=== PATIENT | female | born 1950 | race Caucasian/White ===

== ENCOUNTER 2017-01-24 13:28 | Outpatient (CLI) | payer OTHER, MEDICARE ==
--- NOTE | 2017-01-24 16:56 | MRI ---
MRI CERVICAL SPINE WITHOUT IV CONTRAST: Date: 01/24/17 HISTORY: Compression fractures upper thoracic spine. Follow-up evaluation. Neck and back pain. Steroid inject ions are not helping. COMPARISON: 12/06/16. FINDINGS: As noted on the prior exam, there are mild anterior wedge-shaped compression fractures of the C7, T1 , and T2 vertebral bodies. The edema long the superior end plates of these vertebral bodies has impr trupti when compared to the prior exam with only minimal residual edema present along the superior end plates and predominantly involving the T2 vertebral body. Degree of height loss is unchanged. There is stable slight anterolisthesis of T1 on T2 and degree of listhesis is unchanged. There is also tr amilcar anterolisthesis of C6 on C7, which is a stable finding as well. C2-3 Level: There is no disc bulge or disc herniation. Central spinal canal and neural foramina are patent. C3-4 Level: There is a mild broad based disc osteophyte complex, which results in only sight flattening of the a nterior aspect of the thecal sac. There are facet degenerative changes, primarily on the left, which does result in mild to moderate narrowing of the left neural foramen, similar to prior study. The r ight neural foramen is patent. C4-5 Level: There is loss of intervertebral disc height. There is a broad based disc osteophyte complex with fac et hypertrophic changes. Mild right and moderate to severe left-sided neural foraminal narrowing, st able from prior exam. C5-6 Level: There is loss of intervertebral disc height. Broad based disc osteophyte complex is present. There i s mild effacement of the ventral subarachnoid space. The right neural foramen is patent. There is mi ld to moderate left-sided neural foraminal narrowing. C6-7 Level: There is mild broad based disc osteophyte complex. This narrows the ventral subarachnoid space. Neur al foramina do appear patent at this level. C7-T1 Level: There is no disc bulge or disc herniation. Central spinal canal and neural foramina are patent. T1-2 Level: There is anterolisthesis at this level with broad based disc osteophyte complex also present. This n arrows the ventral subarachnoid space and encroaches on the anterior aspect of the spinal cord. Neur al foramina are patent. There is minimal mucosal thickening of the sphenoid sinus. No other interval change. IMPRESSION: 1. Compression fractures of the C7, T1, and T2 vertebral bodies, and the degree of height loss is u nchanged. The edema within these vertebral bodies has also improved, but does persist. No new compre ssion fracture is seen on this exam. 2. Stable slight anterolisthesis of C6 on C7, and to a slightly greater degree of T1 on T2, which i s also a stable finding. 3. Stable multilevel degenerative changes in the cervical spine. POS: [facility]
--- NOTE | 2017-01-24 17:00 | MRI ---
MRI THORACIC SPINE WITHOUT CONTRAST: Date: 01/24/17 HISTORY: Follow-up compression fractures. COMPARISON: MRI thoracic spine dated 12/06/16. FINDINGS: There is a similar appearance of the compression fracture of the C7, T1, and T2 vertebral bodies, wi th evidence of healing. No further height loss. No retropulsion. Old T9 compression fracture is joesph lar. No evidence for spinal cord compromise. There is a traumatic posterior disc protrusion at T1-T2 effa cing the ventral CSF space. This is unchanged. No new acute superimposed fracture or malalignment. Contour of the aorta is unremarkable. Left parapelvic cysts are similar. IMPRESSION: 1. No interval progression of height loss or superimposed acute thoracic spine fracture, or lower c ervical spine fracture. 2. Mild effacement of the ventral CSF space at T1-T2, similar. POS: [facility]
== END 2017-01-24 13:29 | disposition home or self-care (01) ==
LOC: SCSMRI 13:28
PROVIDERS: ATTEND Anesthesiology Pain Medicine
DX: S22.010A Wedge compression fracture of first thoracic vertebra, initial encounter for closed fracture (principal)
CPT/HCPCS: 72141; 72146

== ENCOUNTER 2017-01-28 16:31 | Outpatient (CLI) | payer OTHER, MEDICARE ==
--- NOTE | 2017-01-29 10:17 | RAD ---
RADIOGRAPH CERVICAL SPINE 3 VIEWS: HISTORY: 66-year-old female with post-traumatic cervicalgia, (trauma on 11-30-16), and cervical spondylosis. COMPARISON: 12-06-16 plain radiographic study. TECHNIQUE: The current study consists of three lateral views in neutral, extension, and flexion. FINDINGS: Advanced degenerative facet disease throughout the entire cervical spine bilaterally. These are resp onsible for slight anterior translations of approximately 2 mm of C2 on C3, C3 on C4, C4 on C5, C5 o n C6, and C6 on C7, on the flexion view. All of these reduce completely on the extension view with t he exception of C6 on C7 which remains unchanged. On the neutral view, only the C5-6 translation red uces. The C7-T1 level is more difficult to evaluate because of obscuring by shoulders. There is mild to mo derate disc space narrowing at C5-6 and C6-7. The rest of the disc spaces are maintained. No prevert ebral soft tissue swelling. Diffuse osteopenia. Slight depression of the anterior superior corner of C7 corresponds to the minimally depressed fracture demonstrated on the MRI of 12-06-16. There is no s ignificant interval change compared to 12-06-16 plain radiographic study. The range of motion is fairl y good. IMPRESSION: 1. Cervical spondylosis, consisting of multilevel high grade facet osteoarthrosis bilaterally, throu ghout the entire cervical spine which results in minimal anterior translations at all levels from C2 -3 through C6-7 (C7-T1 level is poorly visualized), all of which reduce upon extension, except for C 6-7. 2. Small old fracture of the anterior superior corner of C7 vertebral body. 3. No interval change since 12-06-16. RAJESH POS: [facility]
== END 2017-01-28 16:32 | disposition home or self-care (01) ==
LOC: TBSIIMAG 16:31
PROVIDERS: ATTEND Neurological Surgery
DX: M47.812 Spondylosis without myelopathy or radiculopathy, cervical region (principal)
CPT/HCPCS: 72040

== ENCOUNTER 2017-03-18 08:00 | Outpatient (CLI) | payer OTHER, MEDICARE | END 2017-03-18 08:01 | disposition home or self-care (01) | LOC: BICMAMMO 08:00 | PROVIDERS: ATTEND Anesthesiology Pain Medicine | DX: Z13.820 Encounter for screening for osteoporosis (principal); M85.88 Other specified disorders of bone density and structure, other site; M85.852 Other specified disorders of bone density and structure, left thigh | CPT/HCPCS: 77080 ==

== ENCOUNTER 2017-05-09 14:14 | Outpatient (CLI) | payer OTHER, MEDICARE ==
--- NOTE | 2017-05-09 16:05 | CT ---
CT CERVICAL SPINE WITHOUT CONTRAST 05/09/17 HISTORY: M54.2, 50.120. COMPARISON: CT cervical spine 11/30/16. FINDINGS: There is interval remodeling of the C7, T1 and T2 compression fractures involving the anterior superi or vertebral body and the superior end plate. The C7 vertebral fracture shows no significant increase in height loss, although the T1 and T2 compression fractures has mild loss of height. The mastoids are clear. Extensive facet arthropathy changes throughout the spine. IMPRESSION: 1. No acute new fracture or malalignment of the cervical spine. 2. Mild interval increase in height loss of the T1 and T2 compression fractures. 3. Extensive degenerative disease temporomandibular joints bilaterally. POS: [facility]
== END 2017-05-09 14:15 | disposition home or self-care (01) ==
LOC: SCSCT 14:14
PROVIDERS: ATTEND Orthopaedic Surgery
DX: M50.120 Mid-cervical disc disorder, unspecified level (principal); M26.69 Other specified disorders of temporomandibular joint
CPT/HCPCS: 72125

== ENCOUNTER 2017-08-01 13:15 | Outpatient (CLI) | payer OTHER, MEDICARE | END 2017-08-01 13:16 | disposition home or self-care (01) | LOC: BICMAMMO 13:15 | PROVIDERS: ATTEND Obstetrics & Gynecology | DX: Z12.31 Encounter for screening mammogram for malignant neoplasm of breast (principal) | CPT/HCPCS: 77063; 77067 ==

== ENCOUNTER 2017-11-04 13:34 | Outpatient (CLI) | payer OTHER, MEDICARE ==
--- NOTE | 2017-11-04 15:45 | RAD ---
THREE VIEWS RIGHT SHOULDER: Date: 11-04-17 Comparison: None. History: Right sided shoulder pain. FINDINGS: There is moderate degenerative change of the right acromioclavicular joint with interspace narrowing, subchondral sclerosis and anterior osteophyte formation. There is no widening of the coracoclavicula r interspace. No acute fracture or evidence of dislocation. There is mild joint space narrowing invol ving the glenohumeral joint with inferior osteophyte formation of the humeral head. IMPRESSION: Degenerative joint disease. No acute osseous abnormality. POS: [facility]
== END 2017-11-04 13:35 | disposition home or self-care (01) ==
LOC: SCSRAD 13:34
PROVIDERS: ATTEND Internal Medicine
DX: M25.511 Pain in right shoulder (principal); M19.011 Primary osteoarthritis, right shoulder

== ENCOUNTER 2018-08-14 12:47 | Outpatient (CLI) | payer OTHER, MEDICARE ==
--- NOTE | 2018-08-14 13:49 | MMO ---
Bilateral MAMMO Bilat Screen DDI+ADENIKE. CLINICAL HISTORY: Patient is 68 years old and is seen for screening. The patient has no family history of breast cancer. The patient has no personal history of cancer. VIEWS: The views performed were: bilateral craniocaudal with tomosynthesis and bilateral mediolateral oblique with tomosynthesis. FILMS COMPARED: The present examination has been compared to prior imaging studies performed at 09/12/2014, and at [facility] on 08/01/2017. MAMMOGRAM FINDINGS: The breasts are heterogeneously dense, which could obscure a lesion on mammography. There are stable benign appearing calcifications seen in both breasts. There are also vascular calcifications. There are no suspicious masses, suspicious calcifications, or new areas of architectural distortion. IMPRESSION: THERE IS NO MAMMOGRAPHIC EVIDENCE OF MALIGNANCY. A ROUTINE FOLLOW-UP MAMMOGRAM IN 1 YEAR IS RECOMMENDED. THE RESULTS OF THIS EXAM WERE SENT TO THE PATIENT. ACR BI-RADS Category 2 - Benign finding MAMMOGRAPHY NOTE: 1. A negative mammogram report should not delay a biopsy if a dominant of clinically suspicious mass is present. 2. Approximately 10% to 15% of breast cancers are not detected by mammography. 3. Adenosis and dense breasts may obscure an underlying neoplasm.
--- NOTE | 2018-08-14 14:33 | BD ---
DEXA DENSITOMETRY: HISTORY: Postmenopausal osteoporosis screening. FINDINGS: LUMBAR SPINE BMD (g/cm2) T-SCORE L1 0.782 -1.9 L2 0.809 -2.0 L3 0.928 -1.4 L4 0.910 -1.4 TOTAL 0.862 -1.7 FEMORAL NECK DENSITY 0.585 -2.4 TOTAL 0.837 -0.9 IMPRESSION: The bone mineral density of the lumbar spine and femoral neck both indicate osteopenia. TEN YEAR FRACTURE RISK: Major osteoporotic fracture: 13% Hip fracture: 2.8% POS: [facility]
== END 2018-08-14 12:48 | disposition home or self-care (01) ==
LOC: BICMAMMO 12:47
PROVIDERS: ATTEND Internal Medicine
DX: Z12.31 Encounter for screening mammogram for malignant neoplasm of breast (principal); Z13.820 Encounter for screening for osteoporosis; M85.89 Other specified disorders of bone density and structure, multiple sites
CPT/HCPCS: 77063; 77067; 77080

== ENCOUNTER 2018-08-27 12:12 | Outpatient (CLI) | payer OTHER, MEDICARE ==
--- NOTE | 2018-08-27 13:32 | ULT ---
Exam: Bilateral renal ultrasound complete: HISTORY: Acute kidney insufficiency, acute kidney injury COMPARISON: None FINDINGS: Right kidney: 8.4 x 5.2 x 6.2 cm. Left kidney: 10.4 x 4.7 x 4.3 cm No overt hydronephrosis. There is some dilatation of the left renal extrarenal pelvis without calycea l dilatation. No evidence for abnormal perinephric process. No solid or cystic renal mass. Unremarkable appearing bladder. IMPRESSION: Unremarkable bilateral renal ultrasound. Mild dilatation of the left extrarenal pelvis without calyce al dilatation or significant hydronephrosis.
== END 2018-08-27 12:13 | disposition home or self-care (01) ==
LOC: BICULT 12:12
PROVIDERS: ATTEND Internal Medicine
DX: N17.9 Acute kidney failure, unspecified (principal); N28.89 Other specified disorders of kidney and ureter
CPT/HCPCS: 76770

== ENCOUNTER 2018-09-17 01:47 | Outpatient (CLI) | payer OTHER, MEDICARE ==
[2018-09-17 16:05] LABS: #Basophils 0.1 thou/uL (0.0-0.2); #Eosinphils 0.3 thou/uL (0.0-0.7); #Lymphocytes 2.3 thou/uL (1.20-3.40); #Monocytes 0.5 thou/uL (0.11-0.59); #Neutrophils 6.3 thou/uL (1.40-6.50); %Basophils 0.9 % (0.0-1.0); %Eosinophils 2.9 % (0.0-10.0); %Lymphocytes 24.6 % (21.0-51.0); %Monocytes 5.5 % (0.0-10.0); %Neutrophils 66.1 % (42.0-75.0); Hemoglobin 12.1 g/dL (12.0-16.0); Mean Corpuscular HGB CONC 32.9 g/dL (32.0-36.0); Mean Corpuscular Hemoglobin 32.5 pg (27.0-31.0); Mean Corpuscular Volume 98.8 fL (78.0-98.0); Mean Platelet Volume 8.5 fL (7.4-10.4); Platelet Count 335 thou/uL (130-400); RBC Distribution Width 11.3 % (11.5-14.5); Red Blood Cell (RBC) Count 3.72 mill/uL (4.20-5.40); White Blood Cell (WBC) Count 9.5 thou/uL (4.8-10.8)
[2018-09-17 16:12] LABS: INR-International Normal Ratio 0.9; Prothrombin Time 12.5 SEC (12.0-14.7)
[2018-09-17 16:26] LABS: Anion Gap 14 mmol/L (10-20); BUN (Urea Nitrogen) 19 mg/dL (9.8-20.1); Calc. Creatinine Clearance 0 mL/min (70-130); Calcium 10.3 mg/dL (7.8-10.44); Carbon Dioxide 28 mmol/L (23-31); Chloride 102 mmol/L (98-107); Estimated GFR-MDRD 48; Glucose 84 mg/dL (80-115); Potassium 4.1 mmol/L (3.5-5.1); Sodium 140 mmol/L (136-145)
--- NOTE | 2018-09-18 21:25 | EKG ---
Test Reason : Blood Pressure : / mmHG Vent. Rate : 070 BPM Atrial Rate : 070 BPM P-R Int : 178 ms QRS Dur : 084 ms QT Int : 412 ms P-R-T Axes : 073 044 070 degrees QTc Int : 444 ms Normal sinus rhythm Normal ECG When compared with ECG of 18-NOV-2012 06:30, No significant change was found Confirmed by Rajan ATKINS ([id number]) on 09/18/2018 9:24:55 PM Referred By: GRACIELA Confirmed By:Rajan ATKINS
== END 2018-09-17 01:48 | disposition home or self-care (01) ==
LOC: LABBT 01:47
PROVIDERS: ATTEND Orthopaedic Surgery
DX: Z01.818 Encounter for other preprocedural examination (principal); M17.11 Unilateral primary osteoarthritis, right knee
CPT/HCPCS: 80048; 85025; 85610; 87081; 87086; 93005; 93010

== ENCOUNTER 2018-09-17 13:00 | Inpatient (IN) | payer OTHER, MEDICARE ==
[2018-09-17 12:35] VITALS: BMI 22.8
--- NOTE | 2018-09-24 13:02 | HP ---
HISTORY OF PRESENT ILLNESS: The patient is a 68-year-old female with a long history of progressive pain in the right knee, which has been present for several years, but has become much worse over the past several months. She had previous knee arthroscopy in 2012, which gave her temporary relief, but the patient said she has had increasing pain with walking, working, and getting dressed. She has had persistent symptoms despite rest, restriction of activities, and anti-inflammatory medication. Pain is now interfering with day-to-day activities. PAST MEDICAL HISTORY: The patient has had a mild stroke a few years ago with transient right hemiparesis. She has a history of hyperlipidemia and hypertension. CURRENT MEDICATIONS: Include: 1. Low-dose aspirin. 2. Lisinopril. 3. Metoprolol. 4. Lipitor. ALLERGIES: SHE HAS NO KNOWN ALLERGIES. FAMILY HISTORY: Otherwise unremarkable. SOCIAL HISTORY: Otherwise unremarkable. REVIEW OF SYSTEMS: Otherwise unremarkable. She does have some arthritic pain in her left knee, but not as severe as her right. PHYSICAL EXAMINATION: GENERAL: Reveals a healthy female. HEENT: Unremarkable. NECK: Supple. CHEST: Clear. HEART: Regular rate and rhythm. ABDOMEN: Soft, nontender. PELVIC: Deferred. RECTAL: Deferred. GENITAL: Deferred. EXTREMITIES: Pertinent findings related to the right knee, there is puffiness. No effusion. There is mild varus deformity. There is tenderness and crepitus over the medial joint line. There are healed arthroscopy puncture wounds. Range of motion is 5 to 125 degrees. There is no instability. Distal pulses are 1+. There is a right antalgic gait. Neurovascular exam is intact. DIAGNOSTIC STUDIES: X-rays of the right knee revealed [id number] collapse medially. There are similar changes on the left knee without as severe. IMPRESSION: 1. 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 2. History of hypertension. 3. History of mild cerebrovascular accident. PLAN: Right total knee replacement. The nature of the surgery, length of recovery, and potential complications such as infection, loss of motion, incomplete relief, thromboembolic phenomena, neurovascular injury, possible transfusion, and need for revision have been discussed in detail. Job ID: [id number]
[2018-09-28] MEDS ORDERED: Tranexamic Acid 1,000 MG/10 ML VIAL ONE ×2 (06:14→08:57)
[2018-09-28] MEDS ORDERED: Sodium Chloride 0.9% 100 ML ONE (06:14)
[2018-09-28] MEDS ORDERED: Fentanyl 100 MCG/2 ML VIAL ONE ×3 (06:19→09:12)
[2018-09-28] MEDS ORDERED: Midazolam HCl 2 mg/2 ml Vial ONE (06:19)
[2018-09-28] MEDS ORDERED: Bupivacaine/Epinephrine 0.25% 30 ML VIAL ONE (06:33)
[2018-09-28] MEDS ORDERED: Promethazine HCl 25 MG/ML VIAL IM PRN (06:59)
[2018-09-28] MEDS ORDERED: Ropivacaine HCl/PF 250 ML in Premix Bag 1 BAG NERVE BLCK SCH (06:59)
[2018-09-28] MEDS ORDERED: HYDROcodone/Acetaminophen 10/325 mg Tablet PO PRN ×3 (06:59→10:24)
[2018-09-28] MEDS ORDERED: Zolpidem Tartrate 5 MG TAB PO PRN ×2 (06:59→10:24)
[2018-09-28] MEDS ORDERED: Ondansetron PF 4 MG/2 ML Vial IVP PRN ×2 (06:59→10:24)
[2018-09-28] MEDS ORDERED: traMADol HCl 50 MG TAB PO PRN ×3 (06:59→10:24)
[2018-09-28] MEDS ORDERED: Fentanyl 100 MCG/2 ML VIAL IV PRN (07:00)
[2018-09-28] MEDS ORDERED: Tranexamic Acid 1,000 MG in Sodium Chloride 0.9% 100 ML IVPB SCH ×2 (09:00→09:15)
--- NOTE | 2018-09-28 09:09 | RAD ---
XR Knee Rt 2 View History: Total knee postop Comparison: None. Findings: Satisfactory postoperative appearance right total knee arthroplasty and patellar resurfacin g. Expected postoperative gas and edema. Impression: Satisfactory postoperative appearance.
[2018-09-28] MEDS ORDERED: Acetaminophen 1,000 MG in Premix Bag 1 BAG IVPB SCH (10:00)
[2018-09-28] MEDS ORDERED: tiZANidine HCl 4 MG TAB PO PRN (10:24)
[2018-09-28] MEDS ORDERED: Fentanyl 100 MCG/2 ML VIAL SLOW IVP PRN ×2 (10:24)
[2018-09-28] MEDS ORDERED: Acetaminophen 325 MG TAB PO PRN (10:24)
[2018-09-28] MEDS ORDERED: Promethazine HCl 25 MG/ML VIAL SLOW IVP PRN (10:24)
[2018-09-28] MEDS ORDERED: diphenhydrAMINE 25 MG CAP PO PRN (10:24)
[2018-09-28] MEDS ORDERED: Ropivacaine 0.2% HCl/PF (40 MG/20 ML VIAL) ONE (10:25)
[2018-09-28] MEDS ORDERED: Ropivacaine 0.5% HCl/PF (150 MG/30 ML VIAL) ONE (10:25)
[2018-09-28] MEDS ORDERED: PROPOFOL 200 MG/20 ML VIAL ONE (10:42)
[2018-09-28] MEDS ORDERED: Lidocaine 1% PF 5 ML VIAL ONE (10:42)
[2018-09-28] MEDS ORDERED: Dexamethasone 20 MG/5 ML VIAL ONE (10:42)
[2018-09-28] MEDS ORDERED: Ondansetron PF 4 MG/2 ML Vial ONE (10:42)
[2018-09-28] MEDS ORDERED: Calcium Carbonate 500 MG TAB PO SCH (11:00)
[2018-09-28] MEDS ORDERED: Atorvastatin Calcium 40 MG TAB PO SCH (11:00)
[2018-09-28] MEDS ORDERED: Cyanocobalamin (Vitamin B-12) 1,000 MCG TAB PO SCH (11:00)
[2018-09-28] MEDS ORDERED: Aspirin 81 mg Enteric Coated Tablet PO SCH (11:00)
[2018-09-28] MEDS ORDERED: Losartan 25 MG TAB PO SCH (11:00)
[2018-09-28] MEDS ORDERED: Ketorolac Tromethamine 30 MG/ML VIAL IVP SCH (12:00)
--- NOTE | 2018-09-28 12:50 | OP ---
DATE OF PROCEDURE: 09/28/2018 HEALTH ADMINISTRATOR: Elle Garcia PA-C PREOPERATIVE DIAGNOSIS: Degenerative arthritis, right knee. POSTOPERATIVE DIAGNOSIS: Degenerative arthritis, right knee. PROCEDURE PERFORMED: Right total knee replacement with computer-assisted navigation with cemented George Triathlon components (#4 femoral component, #4 primary tibial base plate with 11 mm CS plastic insert, and A29 all-plastic patellar component). ANESTHESIA: General plus adductor canal and sciatic nerve blocks. DESCRIPTION OF PROCEDURE: After satisfactory anesthesia was induced in supine position, sequential compression device was placed on the nonoperative leg throughout the procedure. The right leg was then prepped and draped in routine sterile fashion. The right leg was elevated and exsanguinated with an Esmarch bandage and the tourniquet was inflated to 300 mmHg. A gently curved medial parapatellar incision was made, carried down through the subcutaneous tissues and bleeding points controlled with Bovie cautery. Medial parapatellar arthrotomy was performed of the patella, this was carried laterally and portions of the fat pad were excised for exposure. There was marked degenerative arthritis of the knee especially medially with large areas of exposed bone. Meniscal remnants and osteophytes were removed. Using the [employer] pinless navigation system and the appropriate guides, the distal femoral and proximal tibial articular surfaces were excised to accept the trial components. It was felt that #4 femoral component and #4 tibial base plate with 11 mm CS plastic insert gave appropriate size, fit, stability, and correction of the preoperative deformity. The patellar articular surface was excised to accept an all-plastic A29 patellar component. There was good range of motion and good patellar tracking. The trial components were removed. The knee was copiously irrigated with pulsatile lavage. The bony surfaces were thoroughly cleaned and dried. The permanent components were then cemented in a single stage using one package of cement premixed with 1 g of tobramycin powder. Excess cement was removed. There was again good fit and stability of the components. The wound was again copiously irrigated. The medial retinaculum and quadriceps mechanism was closed with interrupted #2 Vicryl and a running #2 Quill. Subcutaneous tissues were closed with a running 0 Quill suture and the skin was closed with running subcuticular 3-0 Monoderm and SurgiSeal skin adhesive. A sterile bulky compressive dressing was applied and the tourniquet deflated after 65 minutes. The foot promptly pinked up. Sequential compression devices were applied to the operative leg and she was awakened, taken to the recovery room in stable condition. There were no apparent intraoperative complications. The estimated blood loss was less than 100 mL. Job ID: [id number]
[2018-09-28] MEDS: Ketorolac Tromethamine 30 MG/ML VIAL IVP SCH ×3 (15:10→23:03)
[2018-09-28] MEDS: CEFAZOLIN 2 GM in Premix Bag 1 BAG IVPB SCH ×2 (15:11→21:45)
[2018-09-28] MEDS: Sodium Chloride 0.9% 1,000 ML IV SCH ×3 (15:43→21:49)
[2018-09-28] MEDS ORDERED: Vancomycin HCl 1 GM in Premix Bag 1 BAG IVPB SCH (18:00)
[2018-09-28] MEDS: Aspirin 81 mg Enteric Coated Tablet PO SCH (21:45)
[2018-09-28] MEDS: HYDROcodone/Acetaminophen 10/325 mg Tablet PO PRN (21:53)
[2018-09-29] MEDS: HYDROcodone/Acetaminophen 10/325 mg Tablet PO PRN ×4 (03:56→17:43)
[2018-09-29 04:27] LABS: Hemoglobin 9.1 g/dL (12.0-16.0); Mean Corpuscular HGB CONC 33.7 g/dL (32.0-36.0); Mean Corpuscular Hemoglobin 33.1 pg (27.0-31.0); Mean Platelet Volume 8.1 fL (7.4-10.4); Platelet Count 211 thou/uL (130-400); RBC Distribution Width 11.1 % (11.5-14.5); Red Blood Cell (RBC) Count 2.75 mill/uL (4.20-5.40); White Blood Cell (WBC) Count 12.8 thou/uL (4.8-10.8)
[2018-09-29] MEDS: Ketorolac Tromethamine 30 MG/ML VIAL IVP SCH ×2 (06:07→12:52)
[2018-09-29 07:55] VITALS: TEMP 98.1
[2018-09-29] MEDS: Aspirin 81 mg Enteric Coated Tablet PO SCH (08:57)
[2018-09-29] MEDS ORDERED: Cyanocobalamin (Vitamin B-12) 1,000 MCG TAB PO SCH (09:00)
[2018-09-29] MEDS ORDERED: Calcium Carbonate 500 MG TAB PO SCH (09:00)
[2018-09-29] MEDS ORDERED: Multivitamin W/ Minerals 1 TAB PO SCH (09:00)
[2018-09-29] MEDS ORDERED: Atorvastatin Calcium 40 MG TAB PO SCH (09:00)
[2018-09-29] MEDS ORDERED: Senokot S 8.6-50 MG TAB PO SCH (09:00)
[2018-09-29] MEDS ORDERED: Losartan 25 MG TAB PO SCH (09:00)
[2018-09-29] MEDS ORDERED: Ropivacaine 0.2% 550 ML 550 ML NERVE BLCK SCH (14:00)
[2018-09-29 15:44] VITALS: BP 152/69
== END 2018-09-29 17:55 | disposition home or self-care (01) | DRG 470 ==
LOC: SJJU 09-28 05:35
PROVIDERS: ADMIT Orthopaedic Surgery; ATTEND Orthopaedic Surgery
PROC: 0SRC0J9 Replacement of Right Knee Joint with Synthetic Substitute, Cemented, Open Approach (ICD-10-PCS; principal; 2018-09-28)
DX: M17.11 Unilateral primary osteoarthritis, right knee (principal); I69.351 Hemiplegia and hemiparesis following cerebral infarction affecting right dominant side; E78.5 Hyperlipidemia, unspecified; R26.9 Unspecified abnormalities of gait and mobility; I10 Essential (primary) hypertension
CPT/HCPCS: 85027; A4306; C1713; C1776; J0131; J0690; J1100; J1885; J2001; J2250; J2405; J2704; J2795; J3010; J3370; J3490

== ENCOUNTER 2018-09-18 11:56 | Outpatient (CLI) | payer OTHER, MEDICARE ==
[2018-09-18 13:14] LABS: Bilirubin Negative (Negative); Blood, Urine Negative (Negative); Clarity CLEAR (Clear); Glucose, Urine (Dipstick) Negative (Negative); Leukocyte Moderate (Negative); Nitrite Negative (Negative); Protein, Urine (Dipstick) Negative (Neg-Trace); Specific Gravity, Urine 1.014 (1.002-1.036); Urobilinogen 0.2 mg/dL (0.2-1.0); pH, Urine 5.5 (5.0-9.0)
[2018-09-18 13:17] LABS: Bacteria/HPF None Seen HPF (None Seen); Hyaline Casts/LPF 0-3 HYALINE CAST LPF (0-3 Hyaline); RBC/HPF 0-3 HPF (0-3); Squamous Epithelial 0-3 HPF (0-3)
== END 2018-09-18 11:57 | disposition home or self-care (01) ==
LOC: LABBT 11:56
PROVIDERS: ATTEND Orthopaedic Surgery
DX: Z01.812 Encounter for preprocedural laboratory examination (principal); M17.11 Unilateral primary osteoarthritis, right knee
CPT/HCPCS: 81001; 87086

== ENCOUNTER 2018-09-30 05:40 | Emergency (ER) | payer OTHER, MEDICARE ==
[2018-09-30] MEDS ORDERED: Ketorolac Tromethamine 30 MG/ML VIAL ONE (07:17)
[2018-09-30] MEDS ORDERED: Morphine 10 MG/ML VIAL ONE (07:17)
[2018-09-30] MEDS ORDERED: Ondansetron ODT 8 MG TAB ONE (07:17)
== END 2018-09-30 07:58 | disposition home or self-care (01) ==
LOC: ERS 05:40
DX: T81.89XA Other complications of procedures, not elsewhere classified, initial encounter (principal); E78.5 Hyperlipidemia, unspecified; I10 Essential (primary) hypertension; Z86.73 Personal history of transient ischemic attack (TIA), and cerebral infarction without residual deficits; Z79.899 Other long term (current) drug therapy
CPT/HCPCS: 96372; J1885; J2270

== ENCOUNTER 2019-01-08 12:54 | Outpatient (CLI) | payer OTHER, MEDICARE ==
--- NOTE | 2019-01-08 13:24 | ULT ---
Venous duplex sonogram left lower extremity HISTORY: Left leg pain and edema. FINDINGS: The left common femoral vein and greater saphenous junction were evaluated along with the f emoral, deep femoral, popliteal, and posterior tibial veins. There is good color and spectral Doppler flow, compression, and augmentation. IMPRESSION: No sonographic evidence of DVT within the left lower extremity.
== END 2019-01-08 12:55 | disposition home or self-care (01) ==
LOC: ULT 12:54
PROVIDERS: ATTEND Nurse Practitioner Family
DX: M79.662 Pain in left lower leg (principal)

== ENCOUNTER 2019-10-25 08:25 | Emergency (ER) | payer OTHER, MEDICARE ==
[2019-10-25 09:04] LABS: #Basophils 0.1 thou/uL (0.0-0.2); #Eosinphils 0.2 thou/uL (0.0-0.7); #Lymphocytes 1.9 thou/uL (1.20-3.40); #Monocytes 0.4 thou/uL (0.11-0.59); #Neutrophils 4.3 thou/uL (1.40-6.50); %Basophils 1.2 % (0.0-1.0); %Eosinophils 2.6 % (0.0-10.0); %Lymphocytes 27.1 % (21.0-51.0); %Neutrophils 63.1 % (42.0-75.0); Hemoglobin 11.3 g/dL (12.0-16.0); Mean Corpuscular HGB CONC 33.4 g/dL (32.0-36.0); Mean Corpuscular Hemoglobin 32.6 pg (27.0-31.0); Mean Corpuscular Volume 97.8 fL (78.0-98.0); Mean Platelet Volume 8.4 fL (7.4-10.4); Platelet Count 263 thou/uL (130-400); RBC Distribution Width 10.9 % (11.5-14.5); Red Blood Cell (RBC) Count 3.47 mill/uL (4.20-5.40); White Blood Cell (WBC) Count 6.9 thou/uL (4.8-10.8)
[2019-10-25 09:27] LABS: ALT (SGPT) 17 U/L (8-55); AST (SGOT) 20 U/L (5-34); Albumin 3.9 g/dL (3.4-4.8); Alkaline Phosphatase 91 U/L (40-110); Anion Gap 13 mmol/L (10-20); BUN (Urea Nitrogen) 26 mg/dL (9.8-20.1); Bilirubin, Total 0.2 mg/dL (0.2-1.2); Calc. Creatinine Clearance 0 mL/min (70-130); Calcium 9.1 mg/dL (7.8-10.44); Carbon Dioxide 23 mmol/L (23-31); Chloride 106 mmol/L (98-107); Estimated GFR-MDRD 42; Globulin 2.5 g/dL (2.4-3.5); Glucose 123 mg/dL (80-115); Potassium 3.6 mmol/L (3.5-5.1); Protein, Total 6.4 g/dL (6.0-8.3); Sodium 138 mmol/L (136-145)
--- NOTE | 2019-10-25 10:47 | CT ---
CT BRAIN WITHOUT CONTRAST: HISTORY:Dizziness COMPARISON:None FINDINGS: There are foci of decreased attenuation in the periventricular white matter, consistent with chronic small vessel ischemic disease. No evidence of acute infarct, hemorrhage, midline shift or abnormal extra-axial fluid collections is seen. The ventricular size is appropriate and the basilar cisterns are patent. The bony calvarium is intact. The visualized paranasal sinuses and mastoid air cells are well aerated. IMPRESSION: No CT evidence of acute intracranial process.
--- NOTE | 2019-10-25 11:03 | RAD ---
RADIOGRAPH CHEST 1 VIEW: DATE: 10/25/2019 HISTORY: 69-year-old female with hypotension FINDINGS: The visualized lung cohen are clear. The cardiomediastinal silhouette and hilar shadows are normal. The lateral costophrenic angles are sharp. There is no pneumothorax. IMPRESSION: No active disease
[2019-10-25] MEDS ORDERED: Aspirin Chewable 81 MG TAB ONE (11:14)
[2019-10-25 11:44] LABS: Bilirubin Negative (Negative); Blood, Urine Negative (Negative); Clarity Clear (Clear); Glucose, Urine (Dipstick) Normal (Negative); Ketone, Urine Negative (Negative); Leukocyte Negative Leu/uL (Negative); Nitrite Negative (Negative); Protein, Urine (Dipstick) Negative (Neg-Trace); Specific Gravity, Urine 1.005 (1.002-1.036); Urobilinogen Normal mg/dL (Less than 2)
== END 2019-10-25 12:26 | disposition home or self-care (01) ==
LOC: ERS 08:25
DX: E86.0 Dehydration (principal); E78.5 Hyperlipidemia, unspecified; E78.00 Pure hypercholesterolemia, unspecified; I10 Essential (primary) hypertension; Z86.73 Personal history of transient ischemic attack (TIA), and cerebral infarction without residual deficits; Z79.82 Long term (current) use of aspirin; Z79.899 Other long term (current) drug therapy
CPT/HCPCS: 36415; 70450; 71045; 80053; 81003; 83605; 84484; 85025; 87086; 93005

== ENCOUNTER 2019-10-25 17:35 | Observation (INO) | payer OTHER, MEDICARE ==
[2019-10-25 18:23] LABS: #Eosinphils 0.2 thou/uL (0.0-0.7); #Lymphocytes 1.5 thou/uL (1.20-3.40); #Monocytes 0.4 thou/uL (0.11-0.59); #Neutrophils 5.7 thou/uL (1.40-6.50); %Basophils 0.4 % (0.0-1.0); %Eosinophils 2.2 % (0.0-10.0); %Lymphocytes 19.4 % (21.0-51.0); %Monocytes 5.4 % (0.0-10.0); %Neutrophils 72.6 % (42.0-75.0); Hemoglobin 9.4 g/dL (12.0-16.0); Mean Corpuscular HGB CONC 33.5 g/dL (32.0-36.0); Mean Corpuscular Hemoglobin 32.6 pg (27.0-31.0); Mean Corpuscular Volume 97.3 fL (78.0-98.0); Mean Platelet Volume 8.3 fL (7.4-10.4); Platelet Count 242 thou/uL (130-400); Red Blood Cell (RBC) Count 2.89 mill/uL (4.20-5.40); White Blood Cell (WBC) Count 7.9 thou/uL (4.8-10.8)
[2019-10-25 18:42] LABS: ALT (SGPT) 17 U/L (8-55); AST (SGOT) 22 U/L (5-34); Albumin 3.6 g/dL (3.4-4.8); Alkaline Phosphatase 88 U/L (40-110); Anion Gap 11 mmol/L (10-20); BUN (Urea Nitrogen) 21 mg/dL (9.8-20.1); Bilirubin, Total Less than 0.2 mg/dL (0.2-1.2); Calc. Creatinine Clearance 0 mL/min (70-130); Calcium 8.6 mg/dL (7.8-10.44); Carbon Dioxide 22 mmol/L (23-31); Chloride 111 mmol/L (98-107); Estimated GFR-MDRD 42; Globulin 2.2 g/dL (2.4-3.5); Glucose 136 mg/dL (80-115); Potassium 3.9 mmol/L (3.5-5.1); Protein, Total 5.8 g/dL (6.0-8.3); Sodium 140 mmol/L (136-145)
[2019-10-25 18:50] LABS: Bilirubin Negative (Negative); Blood, Urine Negative (Negative); Clarity Clear (Clear); Glucose, Urine (Dipstick) Normal (Negative); Ketone, Urine Negative (Negative); Leukocyte Negative Leu/uL (Negative); Nitrite Negative (Negative); Protein, Urine (Dipstick) Negative (Neg-Trace); Specific Gravity, Urine 1.014 (1.002-1.036); Urobilinogen Normal mg/dL (Less than 2); pH, Urine 5.5 (5.0-9.0)
[2019-10-25] MEDS ORDERED: Piperacillin/Tazobactam 4.5 GM VIAL ONE (18:52)
[2019-10-25] MEDS ORDERED: Vancomycin 1 GM/200 ML BAG ONE (18:52)
[2019-10-25] MEDS ORDERED: Acetaminophen 325 MG TAB PO PRN (21:20)
--- NOTE | 2019-10-25 22:36 | HP ---
PRIMARY CARE PHYSICIAN: Dr. Licona. CHIEF COMPLAINT: Low blood pressure. HISTORY OF PRESENT ILLNESS: The patient is a very pleasant 69-year-old female with past medical history significant for hypertension, hyperlipidemia, and a CVA in the past. She presents to the ER today for low blood pressure. She was seen initially this morning around 10 a.m. after she felt a little lightheaded and dizzy. Her initial blood pressure on arrival was 60/30. She states that she did take her normal blood pressure medication, but did not take any extra. Denied any chest pain, abdominal pain, sick contacts, fever, chills. No known exposure to coronavirus. 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 She was discharged at that time. This afternoon, she returns after once again experiencing lightheadedness and dizziness. Blood pressure upon arrival was 65/32. It filipe on its own to 87/47. She was placed in Trendelenburg, and she was given 2 more liters of IV fluids. She denies taking any further blood pressure medicine between the 2 visits. She did take her normal vitamins that she takes in the afternoon. Today in the ER, they completed a chest x-ray, brain CT, lab work, urinalysis, and EKG. PAST MEDICAL HISTORY: Hypertension, hyperlipidemia, CVA. PAST SURGICAL HISTORY: Right knee replacement. ALLERGIES: NO KNOWN DRUG ALLERGIES. MEDICATIONS: 1. Tizanidine 4 mg every 6 hours as needed. 2. Aspirin 325 mg daily. 3. Tramadol 50 mg every 8 hours as needed. 4. Losartan 50 mg once daily. 5. Metoprolol tartrate 25 mg once a day. 6. Atorvastatin 40 mg once a day. 7. Alprazolam 0.25 mg as needed. 8. Citalopram 10 mg once a day. 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 She lives home alone and is able to fulfill all ADLs. She denies any smoking, drinking, or alcohol use. FAMILY HISTORY: Grandpa had IN at 65. Her mother is still alive and healthy at 93. REVIEW OF SYSTEMS: All other review of systems is negative unless noted in the HPI. PHYSICAL EXAMINATION: VITAL SIGNS: Blood pressure 127/71, pulse 83, respiratory rate 18, temperature 97.8, O2 saturation 100% on room air. GENERAL: No pain. The patient appears nontoxic and pain-free. HEAD: Atraumatic, normocephalic. EYES: PERRLA. Extraocular muscles intact. ENT: No lymphadenopathy. Mucous membranes moist. No sinus tenderness. RESPIRATORY: Breath sounds are clear to auscultation. No wheezing. No rhonchi. No rales. Symmetrical chest movement. CARDIOVASCULAR: Regular rate and rhythm. No murmurs, no rubs. No gallop. ABDOMEN: Nontender. No distention. Bowel sounds normal. EXTREMITIES: No edema. No cyanosis. No clubbing. Posterior tibial pulse normal. NEUROLOGIC: Cranial nerves 2 through 12 intact. Memory normal. No cerebellar deficits. PSYCH: Normal affect, normal behavior. IMAGING STUDIES: Brain CT showed no CT evidence of acute intracranial process. Chest x-ray showed no active disease. EKG shows sinus rhythm, rate 78 beats per minute with no ectopic beats. LABORATORY DATA: White blood cells 7.9, hemoglobin 9.4, hematocrit 28.1. Sodium 140, potassium 3.9, chloride 111, carbon dioxide 22, lactic acid 1.7, glucose 136, calcium 8.6. Troponin 0.013. BNP 122.5. Urine showed no signs of acute UTI. IMPRESSION AND PLAN: The patient presented to the emergency room twice today for hypotension. We will hold all antihypertensive medications at this time and see if the patient is able to maintain her blood pressure while having held them. White blood cells remained normal with both visits. No clear signs of infection as chest x-ray and white blood cells and urine remain negative. We will draw labs again in the morning to continue to follow. Antibiotics are not going to be started at this time. Dayshift may reconsider once more a.m. labs are drawn or if patient becomes febrile. This has been discussed with Dr. Patterson. Continue to hydrate the patient over the night. Between emergency room visits today, her hemoglobin dropped from 11.3 to 9.4. Gastrointestinal bleed is not suspected at this time as probably this is more dilutional as she has received 4 L of normal saline today for her blood pressure. We will also monitor labs in the morning. Creatinine is slightly elevated at 1.25. This does appear to be her baseline along with her GFR being in the 40s. Other home medications besides her antihypertensive medications may be restarted once the list is reconciled with nursing. We will obtain a set of orthostatics to see if she maintains her blood pressure with position changes. She will be monitored on telemetry as observation for the patient at this time and continue to monitor her in's and out's also. Blood cultures and urine cultures have both been sent and are pending. Deep venous thrombosis prophylaxis will be sequential compression devices. As stated gastrointestinal bleed is not suspected at this time, but due to the change in her hemoglobin, no anticoagulation medication will be started currently. Gastrointestinal prophylaxis will be Pepcid. The patient wishes to be a full code. She wishes for her surrogate decision makers to be her daughters, Elisa, Audrey, and Michelle. This patient has been discussed with Dr. Patterson. Job ID: [id number] [facility]
[2019-10-25] MEDS ORDERED: tiZANidine HCl 4 MG TAB PO SCH (23:00)
[2019-10-25 23:23] VITALS: BMI 23.8
[2019-10-25] MEDS: Sodium Chloride 0.9% 1,000 ML IV SCH (23:29)
[2019-10-26 04:46] LABS: #Basophils 0.1 thou/uL (0.0-0.2); #Eosinphils 0.2 thou/uL (0.0-0.7); #Lymphocytes 1.3 thou/uL (1.20-3.40); #Monocytes 0.5 thou/uL (0.11-0.59); #Neutrophils 5.4 thou/uL (1.40-6.50); %Basophils 0.7 % (0.0-1.0); %Eosinophils 2.9 % (0.0-10.0); %Lymphocytes 17.9 % (21.0-51.0); %Monocytes 6.4 % (0.0-10.0); Hemoglobin 10.3 g/dL (12.0-16.0); Mean Corpuscular HGB CONC 33.7 g/dL (32.0-36.0); Mean Corpuscular Hemoglobin 32.7 pg (27.0-31.0); Platelet Count 211 thou/uL (130-400); RBC Distribution Width 11.1 % (11.5-14.5); Red Blood Cell (RBC) Count 3.14 mill/uL (4.20-5.40); White Blood Cell (WBC) Count 7.5 thou/uL (4.8-10.8)
[2019-10-26 05:08] LABS: Anion Gap 11 mmol/L (10-20); BUN (Urea Nitrogen) 17 mg/dL (9.8-20.1); Calc. Creatinine Clearance 53 mL/min (70-130); Calcium 8.6 mg/dL (7.8-10.44); Carbon Dioxide 22 mmol/L (23-31); Chloride 112 mmol/L (98-107); Estimated GFR-MDRD 59; Glucose 115 mg/dL (80-115); Potassium 3.7 mmol/L (3.5-5.1); Sodium 141 mmol/L (136-145)
[2019-10-26] MEDS ORDERED: Famotidine 20 MG TAB PO SCH (09:00)
[2019-10-26] MEDS ORDERED: Losartan 25 MG TAB PO SCH (16:15)
[2019-10-26] MEDS: Sodium Chloride 0.9% 1,000 ML IV SCH (16:39)
[2019-10-26 16:46] VITALS: TEMP 99.2
[2019-10-26] MEDS ORDERED: Labetalol HCl 100 MG/20 ML VIAL SLOW IVP SCH (17:30)
[2019-10-26 19:41] VITALS: BP 176/81
[2019-10-26] MEDS ORDERED: Atorvastatin Calcium 40 MG TAB PO SCH (21:00)
[2019-10-26] MEDS ORDERED: traMADol HCl 50 MG TAB PO SCH (21:00)
--- NOTE | 2019-10-27 08:02 | DIS ---
DATE OF ADMISSION: 10/25/2019 DATE OF DISCHARGE: 10/26/2019 HOSPITAL COURSE: Ms. Hays is a 69-year-old female with a medical history of chronic diarrhea who presented with diarrhea and hypertension. She was diagnosed with chronic diarrhea. C diff was negative and additional workup was initiated to be followed by her primary care physician and software design engineer. The patient was educated regarding proper fluid intake and was discharged on Imodium p.r.n. for diarrhea. At the time of discharge, she was hemodynamically stable and had no complaints. PHYSICAL EXAMINATION: VITAL SIGNS: Blood pressure 176/81, pulse 95, respiratory rate 20, oxygen saturation 98% on room air and temperature 99.2 Fahrenheit. GENERAL APPEARANCE: Lying comfortably in bed. Awake and alert. HEENT: Normocephalic, atraumatic. CARDIOVASCULAR: Regular rate and rhythm. No murmurs, gallops, or rubs. RESPIRATORY: Clear to auscultation bilaterally. No wheezing, rales, or rhonchi. ABDOMEN: Nondistended nontender. Normal bowel sounds. MEDICATION LIST: New medication: Loperamide 2 mg for each bowel movement with a maximum dosage of 16 mg over 24 hours. CONTINUED MEDICATIONS: 1. Vitamin B12. 2. Vitamin D. 3. Tramadol. 4. Tizanidine. 5. Aspirin. 6. Losartan. 7. Atorvastatin. 8. Metoprolol. 9. Calcium carbonate. 10. Citalopram. 11. Magnesium. Job ID: [id number]
[2019-10-27] MEDS ORDERED: Cyanocobalamin (Vitamin B-12) 1,000 MCG TAB PO SCH (09:00)
[2019-10-27] MEDS ORDERED: Aspirin 325 MG TAB PO SCH (09:00)
[2019-10-27] MEDS ORDERED: Losartan 25 MG TAB PO SCH (09:00)
[2019-10-27] MEDS ORDERED: Citalopram 10 MG TAB PO SCH (09:00)
[2019-10-27] MEDS ORDERED: Magnesium Oxide 250 MG TAB PO SCH (09:00)
[2019-10-27] MEDS ORDERED: Cholecalciferol 1,000 UNITS (25 MCG) TAB PO SCH (09:00)
[2019-10-27] MEDS ORDERED: Calcium Carbonate 600 MG TAB PO SCH (09:00)
[2019-10-28 12:14] LABS: EliA Celiac New Method **** NEW METHOD ****; Gliadin IgA Ab, Deamidated 0.7 EliAU/mL (<7 Negative); Gliadin IgG Ab, Deamidated Less than 0.4 EliAU/mL (<7 Negative); t-Transglutaminase (tTG) IgA 0.2 EliAU/mL (<7 Negative); t-Transglutaminase (tTG) IgG 0.6 EliAU/mL (<7 Negative)
== END 2019-10-26 19:35 | disposition home or self-care (01) ==
LOC: ERS 17:35 → ERHOLD 18:59 → 2NO 10-26 03:18
PROVIDERS: ADMIT Internal Medicine; ATTEND Internal Medicine
DX: K52.9 Noninfective gastroenteritis and colitis, unspecified (principal); I95.9 Hypotension, unspecified; I10 Essential (primary) hypertension; E78.5 Hyperlipidemia, unspecified; Z86.73 Personal history of transient ischemic attack (TIA), and cerebral infarction without residual deficits; Z79.82 Long term (current) use of aspirin; Z79.899 Other long term (current) drug therapy
CPT/HCPCS: 36415; 36416; 51701; 70450; 71045; 80048; 80053; 81003; 83516; 83605; 83880; 84443; 84484; 85025; 86140; 87040; 87086; 87324; 87449; 93005; 96360; 96361; 96365; 96375; G0378; J2543; J3370

== ENCOUNTER 2019-11-01 12:00 | Emergency (ER) | payer OTHER, MEDICARE ==
[2019-11-01 12:34] LABS: #Basophils 0.1 thou/uL (0.0-0.2); #Eosinphils 0.2 thou/uL (0.0-0.7); #Lymphocytes 1.8 thou/uL (1.20-3.40); #Monocytes 0.6 thou/uL (0.11-0.59); #Neutrophils 5.6 thou/uL (1.40-6.50); %Basophils 0.9 % (0.0-1.0); %Eosinophils 1.9 % (0.0-10.0); %Lymphocytes 22.5 % (21.0-51.0); %Monocytes 7.2 % (0.0-10.0); %Neutrophils 67.6 % (42.0-75.0); Hemoglobin 10.7 g/dL (12.0-16.0); Mean Corpuscular HGB CONC 33.3 g/dL (32.0-36.0); Mean Corpuscular Hemoglobin 32.5 pg (27.0-31.0); Mean Corpuscular Volume 97.6 fL (78.0-98.0); Mean Platelet Volume 8.4 fL (7.4-10.4); Platelet Count 304 thou/uL (130-400); RBC Distribution Width 11.1 % (11.5-14.5); Red Blood Cell (RBC) Count 3.28 mill/uL (4.20-5.40); White Blood Cell (WBC) Count 8.2 thou/uL (4.8-10.8)
--- NOTE | 2019-11-01 12:36 | RAD ---
XR Chest 1 View Portable HISTORY: Altered mental status and hypotension COMPARISON: 10/25/2019 FINDINGS: The heart size is normal. The lungs are well expanded without focal areas of consolidation, pneumothorax or pleural effusions. IMPRESSION: No radiographic evidence of acute cardiopulmonary process.
[2019-11-01 12:43] LABS: INR-International Normal Ratio 0.9; Prothrombin Time 12.3 sec (12.0-14.7)
[2019-11-01 12:44] LABS: PTT 26.2 sec (22.9-36.1)
[2019-11-01 12:57] LABS: ALT (SGPT) 22 U/L (8-55); AST (SGOT) 24 U/L (5-34); Albumin 3.9 g/dL (3.4-4.8); Alkaline Phosphatase 92 U/L (40-110); Anion Gap 12 mmol/L (10-20); BUN (Urea Nitrogen) 19 mg/dL (9.8-20.1); Bilirubin, Total 0.3 mg/dL (0.2-1.2); CK (CPK) 50 U/L (29-168); Calc. Creatinine Clearance 0 mL/min (70-130); Carbon Dioxide 26 mmol/L (23-31); Chloride 99 mmol/L (98-107); Estimated GFR-MDRD 45; Globulin 2.4 g/dL (2.4-3.5); Glucose 146 mg/dL (80-115); Lipase 32 U/L (8-78); Potassium 3.9 mmol/L (3.5-5.1); Protein, Total 6.3 g/dL (6.0-8.3); Sodium 133 mmol/L (136-145)
[2019-11-01 13:33] LABS: Bilirubin Negative (Negative); Blood, Urine Negative (Negative); Glucose, Urine (Dipstick) Negative (Negative); Ketone, Urine Negative (Negative); Leukocyte Negative (Negative); Nitrite Negative (Negative); Protein, Urine (Dipstick) Negative (Neg-Trace); Urobilinogen 0.2 mg/dL (Less than 2); pH, Urine 6.5 (5.0-9.0)
[2019-11-01 13:35] LABS: Clarity Clear (Clear)
== END 2019-11-01 14:20 | disposition home or self-care (01) ==
LOC: ERS 12:00
DX: E86.1 Hypovolemia (principal); E86.0 Dehydration; E78.5 Hyperlipidemia, unspecified; E78.00 Pure hypercholesterolemia, unspecified; I10 Essential (primary) hypertension; Z86.73 Personal history of transient ischemic attack (TIA), and cerebral infarction without residual deficits; Z79.82 Long term (current) use of aspirin; Z79.899 Other long term (current) drug therapy
CPT/HCPCS: 36415; 71045; 80053; 81003; 82274; 82550; 82607; 82728; 82746; 83540; 83550; 83690; 84484; 85025; 85610; 85730; 93005; 96360

== ENCOUNTER 2019-11-02 11:50 | Outpatient (CLI) | payer OTHER, MEDICARE ==
--- NOTE | 2019-11-02 12:17 | RAD ---
EXAM: XR Heel Rt 2 View STANDARD DATE: 11/02/2019 12:00 AM INDICATION: Achilles tendinitis COMPARISON: None. FINDING: There are dystrophic type calcifications seen within the soft tissues of the distal [place] s tendon just prior to its insertion likely related to chronic Achilles tendinosis. No acute fracture is evident. IMPRESSION:Chronic Achilles tendinosis
--- NOTE | 2019-11-02 12:22 | RAD ---
XR Ankle Rt 2 View INDICATION: Achilles tendinitis COMPARISON: None. FINDINGS: Bones: Intact. Ankle mortise: Symmetric. Talar Dome: Intact. Subtalar joint: Normal. Visualized hindfoot: Normal. Periarticular soft tissues: There are dystrophic type calcification seen within the distal Achilles t endon. IMPRESSION: 1. Chronic Achilles tendinosis. If there is concern for Achilles tendon disruption, further evaluatio n with MRI of the right hindfoot is recommended.
== END 2019-11-02 11:51 | disposition home or self-care (01) ==
LOC: BICRAD 11:50
PROVIDERS: ATTEND Internal Medicine
DX: M76.61 Achilles tendinitis, right leg (principal)

== ENCOUNTER 2019-11-09 08:06 | Outpatient (CLI) | payer OTHER, MEDICARE ==
--- NOTE | 2019-11-09 09:25 | CT ---
ABDOMEN AND PELVIC CT SCAN WITH IV CONTRAST: HISTORY: Diarrhea. COMPARISON: Renal ultrasound 08/27/2018 and chest, abdomen, and pelvic CT scan, 11/30/2016. FINDINGS: The lung bases appear clear. The visualized liver, gallbladder, pancreas, spleen, and adrenal glands are unremarkable. No renal calculus or acute obstruction. Probable small right renal cyst. Sta ble left renal parapelvic cyst versus mild stable renal pelvis dilatation. No evidence for large or small bowel obstruction. Normal-appearing appendix. Minimal colonic diverticulosis without acute di verticulitis. No free intraperitoneal fluid, adenopathy, or other acute process. IMPRESSION: No significant acute process in the abdomen or pelvis. Stable appearance from prior study. POS: OFF
[2019-11-09] MEDS ORDERED: Iopamidol-370 76% 500 ML 1 ML ONE (10:57)
== END 2019-11-09 08:07 | disposition home or self-care (01) ==
LOC: BICCT 08:06
PROVIDERS: ATTEND Physician Assistant Medical
DX: R19.7 Diarrhea, unspecified (principal)
CPT/HCPCS: 74177; Q9967

== ENCOUNTER 2020-04-19 13:40 | Outpatient (CLI) | payer OTHER, MEDICARE ==
--- NOTE | 2020-04-19 15:29 | MMO ---
Bilateral MAMMO Bilat Screen [facility]. CLINICAL HISTORY: Patient is 69 years old and is seen for screening. The patient has no family history of breast cancer. The patient has no personal history of cancer. VIEWS: The views performed were: bilateral craniocaudal with tomosynthesis and bilateral mediolateral oblique with tomosynthesis. FILMS COMPARED: The present examination has been compared to prior imaging studies performed at [facility] on 08/01/2017 and 08/14/2018. This study has been interpreted with the assistance of computer-aided detection. MAMMOGRAM FINDINGS: The breasts are heterogeneously dense, which could obscure a lesion on mammography. Benign calcifications are noted bilaterally. There are no suspicious masses, suspicious calcifications, or new areas of architectural distortion. IMPRESSION: THERE IS NO MAMMOGRAPHIC EVIDENCE OF MALIGNANCY. A ROUTINE FOLLOW-UP MAMMOGRAM IN 1 YEAR IS RECOMMENDED. THE RESULTS OF THIS EXAM WERE SENT TO THE PATIENT. ACR BI-RADS Category 2 - Benign finding MAMMOGRAPHY NOTE: 1. A negative mammogram report should not delay a biopsy if a dominant of clinically suspicious mass is present. 2. Approximately 10% to 15% of breast cancers are not detected by mammography. 3. Adenosis and dense breasts may obscure an underlying neoplasm. Reported by: KAMRYN WALSH MD Electonically Signed: [id number]
== END 2020-04-19 13:41 | disposition home or self-care (01) ==
LOC: BICMAMMO 13:40
PROVIDERS: ATTEND Internal Medicine
DX: Z12.31 Encounter for screening mammogram for malignant neoplasm of breast (principal)
CPT/HCPCS: 77063; 77067

== ENCOUNTER 2020-08-22 14:27 | Outpatient (CLI) | payer OTHER, MEDICARE | END 2020-08-22 14:28 | disposition home or self-care (01) | LOC: SCSMRI 14:27 | PROVIDERS: ATTEND Anesthesiology Pain Medicine | DX: M48.02 Spinal stenosis, cervical region (principal); M43.12 Spondylolisthesis, cervical region; M43.14 Spondylolisthesis, thoracic region; M48.04 Spinal stenosis, thoracic region | CPT/HCPCS: 72141 ==

== ENCOUNTER 2021-05-25 13:01 | Outpatient (CLI) | payer BC, MEDICARE | END 2021-05-25 13:02 | disposition home or self-care (01) | LOC: BICRAD 13:01 | PROVIDERS: ATTEND Anesthesiology Pain Medicine | DX: M47.816 Spondylosis without myelopathy or radiculopathy, lumbar region (principal); M51.36 Other intervertebral disc degeneration, lumbar region | CPT/HCPCS: 72110 ==

== ENCOUNTER 2021-07-31 13:50 | Outpatient (CLI) | payer BC, MEDICARE | END 2021-07-31 13:51 | disposition home or self-care (01) | LOC: BICMAMMO 13:50 | PROVIDERS: ATTEND Internal Medicine | DX: Z12.31 Encounter for screening mammogram for malignant neoplasm of breast (principal); M81.0 Age-related osteoporosis without current pathological fracture; M85.88 Other specified disorders of bone density and structure, other site | CPT/HCPCS: 77063; 77067; 77080 ==

== ENCOUNTER 2022-03-11 09:35 | Outpatient (CLI) | payer BC, MEDICARE | END 2022-03-11 09:36 | disposition home or self-care (01) | LOC: RAD 09:35 | PROVIDERS: ATTEND Nurse Practitioner Family | DX: M25.571 Pain in right ankle and joints of right foot (principal); S82.64XA Nondisplaced fracture of lateral malleolus of right fibula, initial encounter for closed fracture; M79.89 Other specified soft tissue disorders; M65.871 Other synovitis and tenosynovitis, right ankle and foot ==

== ENCOUNTER 2022-09-26 14:03 | Outpatient (CLI) | payer MEDICARE | END 2022-09-26 14:04 | disposition home or self-care (01) | LOC: BICMAMMO 14:03 | PROVIDERS: ATTEND Internal Medicine | DX: Z12.31 Encounter for screening mammogram for malignant neoplasm of breast (principal) | CPT/HCPCS: 77063; 77067 ==

== ENCOUNTER 2023-09-29 13:02 | Outpatient (CLI) | payer MEDICARE | END 2023-09-29 13:03 | disposition home or self-care (01) | LOC: BICMAMMO 13:02 | PROVIDERS: ATTEND Internal Medicine | DX: Z12.31 Encounter for screening mammogram for malignant neoplasm of breast (principal); M81.0 Age-related osteoporosis without current pathological fracture; M85.88 Other specified disorders of bone density and structure, other site | CPT/HCPCS: 77063; 77067; 77080 ==